=== PATIENT | female | born 1950 | race Caucasian/White ===

== ENCOUNTER → 2017-05-02 | Outpatient (CLI) | payer OTHER | LOC: FIMAGING 10:34 | PROVIDERS: ATTEND Family Medicine | DX: Z12.31 Encounter for screening mammogram for malignant neoplasm of breast (principal); Z80.3 Family history of malignant neoplasm of breast | CPT/HCPCS: G0202 ==

== ENCOUNTER → 2018-08-04 | Outpatient (CLI) | payer OTHER | LOC: FIMAGING 10:58 | PROVIDERS: ATTEND Family Medicine | DX: Z12.31 Encounter for screening mammogram for malignant neoplasm of breast (principal); Z80.3 Family history of malignant neoplasm of breast ==

== ENCOUNTER 2019-02-02 11:33 | Emergency (ER) | payer OTHER ==
[2019-02-02 11:45] VITALS: BP 156/123
[2019-02-02] MEDS ORDERED: ONDANSETRON DISINTEGRATING 4 MG TAB PO ONE (11:55)
--- NOTE | 2019-02-02 11:59 | EDPHY ---
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 Patient has a closed, probable intra-articular, angulated, displaced left distal radius fracture. She has intact distal neurovascular exam. No elbow or shoulder pain. Hematoma block placed and traction applied while sugar-tong splint was applied. Patient tolerated procedure well. She was able to get follow-up with her primary orthopedic provider today. She has pain medications at home from a recent shoulder replacement. Warning signs for ED return outlined in discharge. DIFFERENTIAL DX: Differential includes but not limited to acute fracture, strain/sprain, joint dislocation, soft tissue contusion ED PROCEDURES: Procedure: Splint placement. A left forearm sugar-tong splint was applied to left arm by cardiac technologist, supervised by myself. After application of the splint I returned and re- examined the patient. The splint was adequately immobilizing the joint and distal to the splint the patient's circulation and sensation was intact. Procedure: Regional anesthesia. A hematoma block was performed for left wrist fracture The block was performed with 2% lidocaine without epinephrine. The patient experienced improved pain relief. The procedure was performed by myself. ED COURSE: Patient seen and assessed by myself. Plan for x-rays. Patient requesting ODT Zofran. Will keep NPO at this time. 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 Patient reports prior fracture to this wrist but does not have hardware in place. She reports a recent right shoulder replacement by Dr. Madrigal. No reported loss of sensation to hand or fingers. She has been NPO x3 hours. No elbow or shoulder pain on the left. No open wounds. PAST MEDICAL HISTORY: Right shoulder replacement Pertinent Past Surgical History: Right shoulder replacement Social History: Otherwise healthy, REVIEW OF SYSTEMS: All other systems negative Constitutional: No fever, no chills Musculoskeletal: No deformity, + joint pain Skin: No rashes, color change or open wounds. Neurological: No sensory loss or weakness. PHYSICAL EXAM: General Appearance: Alert, oriented, appropriate for age, cooperative, NAD, well hydrated, non-toxic appearing, hypertensive, no hypoxia. Neurological: [ Alert and oriented x 3, normal sensation Skin: Warm, dry, no rashes, no nodules on palpation. Musculoskeletal: Obvious deformity and swelling of the left wrist, no open injuries, distal neurovascular exam intact. No reproducible forearm or elbow pain. MEDICAL DECISION MAKING: Patient was seen independently. Secondary supervising physician at time of evaluation was Dr. Porras. Diagnosis: Closed, displaced, angulated, probable intra-articular left distal radius fracture. New, requires workup Summary: See assessment and plan for summary of ED visit Independent visualization of images, tracing, or specimens yes. Patient Progress: Stable for discharge. - Diagnostics Imaging Results: Imaging Impressions Wrist X-Ray 02/02/19 11:48 Impression: 1. Acute displaced and minimally angulated distal radius fracture with probable intra-articular component. 2. Acute nondisplaced distal ulna fracture. - History Smoking Status: Never smoked - Objective Vital Signs: Initial Vital Signs Temperature (C) 37 C 02/02/19 11:42 Heart Rate 88 02/02/19 11:42 Respiratory Rate 16 02/02/19 11:42 Blood Pressure 156/123 H 02/02/19 11:42 O2 Sat (%) 97 03/05/19 11:42 O2 Delivery Mode Room Air Allergies/Adverse Reactions: No Known Allergies Allergy (Unverified 02/02/19 11:42) Home Medications: Medication Instructions Recorded FLUoxetine 02/02/19 traMADol 02/02/19 Medications Given: Discontinued Medications Ondansetron HCl (Zofran Odt) 4 mg PO EDNOW ONE Stop: 02/02/19 11:56 Last Admin: 02/02/19 11:59 Dose: 4 mg Departure - Departure Disposition: Home, Routine, Self-Care Clinical Impression: Wrist fracture, left Qualifiers: Encounter type: initial encounter Fracture type: closed Qualified Code(s): S62.102A - Fracture of unspecified carpal bone, left wrist, initial encounter for closed fracture Condition: Good Instructions: Wrist Fracture in Adults (ED) Additional Instructions: DISCHARGE INSTRUCTIONS FROM YOUR DOCTOR Thank you for visiting our emergency department today. You were treated by a physician education administrative assistant today and your case was reviewed with our ED Attending physician. Please keep in mind that discharge from the emergency department does not mean that there is nothing wrong - it simply means that we have not identified an emergency condition that requires further evaluation or treatment in the hospital. You should always plan to follow up with primary care for re- evaluation of your condition in the next 2-3 days. If you have been referred to a specialist, please call as soon as possible (today or tomorrow) to schedule your follow up appointment at the appropriate time. FOLLOW-UP WITH HER ORTHOPEDIC PROVIDER TODAY. USE PAIN MEDICATION AT HOME IF NEEDED. KEEP HER SPLINT ON UNTIL YOU SEE ORTHO. REST AND ELEVATE THE AFFECTED EXTREMITY MUCH POSSIBLE. ICE THE AFFECTED AREAS 20 MIN ON, 20 MIN OFF FOR THE NEXT SEVERAL DAYS. RETURN TO ER FOR WORSENING SYMPTOMS OR ANY OTHER CONCERNS. People present with illnesses and injuries in different ways, and it is always possible that we have missed something. You may always return for re-evaluation if symptoms worsen or if they are not improving or if you develop new/different symptoms. Again, thank you for choosing our emergency department. We hope that you feel better. Referrals: Nestor Zelaya DO [Primary Care Provider] - As per Instructions Palak Madrigal MD [Medical Doctor] - As per Instructions
== END 2019-02-02 12:50 | disposition home or self-care (01) ==
PROC: 2W3DX1Z Immobilization of Left Lower Arm using Splint (ICD-10-PCS; principal; 2019-02-02)
DX: S52.502A Unspecified fracture of the lower end of left radius, initial encounter for closed fracture (principal); S52.602A Unspecified fracture of lower end of left ulna, initial encounter for closed fracture; W00.0XXA Fall on same level due to ice and snow, initial encounter; Y92.9 Unspecified place or not applicable; Y99.9 Unspecified external cause status; Y93.9 Activity, unspecified; Z96.611 Presence of right artificial shoulder joint
CPT/HCPCS: 29125; 73110; 99283; A4565